=== PATIENT | male | born 1955 | race Caucasian/White ===

== ENCOUNTER → 2018-11-18 | Outpatient (CLI) | payer OTHER ==
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
== END | disposition home or self-care (01) ==
LOC: RAD 08:58
PROVIDERS: ATTEND Physician Assistant Medical
DX: M47.892 Other spondylosis, cervical region (principal); M46.06 Spinal enthesopathy, lumbar region; M47.896 Other spondylosis, lumbar region; M47.893 Other spondylosis, cervicothoracic region
CPT/HCPCS: 72040; 72110

== ENCOUNTER → 2019-01-08 | Outpatient (CLI) | payer OTHER ==
--- NOTE | 2019-01-08 10:59 | RAD ---
Bone mineral density exam History: Closed compression fracture of the lumbar spine, smoker, previously took Fosamax, steroid use Comparison: None Findings: Bone mineral density examination utilizing DEXA was performed. Proximal right femur bone mineral density of 574 mg/cm2 corresponds with a T score -3.4, Z score -2.7. The bone mineral density of the lumbar spine was 0.876 g/cm2 which corresponds with a T-score of -2.9, Z score -2.2. By World [employer] on Osteoporosis criteria, a T score of 0 to-1 SD is considered to be within normal limits. A T score of -1 to -2.5 SD is considered osteopenia. A T score less than -2.5 SD is considered osteoporosis Impression: 1. There is osteoporosis of the lumbar spine and proximal right femur. Electronically signed by: Nabor Monterroso MD (01/08/2019 10:57 AM) [id number]
== END | disposition home or self-care (01) ==
LOC: DXRAD 09:53
PROVIDERS: ATTEND Physician Assistant Medical
DX: M81.8 Other osteoporosis without current pathological fracture (principal); F17.200 Nicotine dependence, unspecified, uncomplicated
CPT/HCPCS: 77080

== ENCOUNTER → 2021-07-30 | Outpatient (CLI) | payer MEDICARE, OTHER ==
--- NOTE | 2021-07-30 15:33 | RAD ---
CT scan of the paranasal sinuses without contrast 07/30/2021 CLINICAL HISTORY: Maxillary hyperplasia. TECHNIQUE: Unenhanced, contiguous, 0.625 mm axial sections were obtained through the paranasal sinuse s. 1 mm reconstructed sagittal, axial and coronal images were obtained. One or more of the following individualized dose reduction techniques were utilized for this study: 1. Automated exposure control. 2. Adjustment of the mA and/or kV according to patient size. 3. Use of iterative reconstruction technique. FINDINGS: Complete opacification of the right maxillary sinus due to mucosal thickening and/or secret ions is seen. Sclerotic thickening of the maxilla surrounding the right maxillary sinus is seen. Irre gular of the of the borders of the inner melissa of the right maxillary sinus seen. These findings are consistent with chronic sinusitis. Mild to moderate mucosal thickening is seen involving the inferior aspect of the left maxillary sinus. The remaining paranasal sinuses are clear. The left ostiomeatal unit is patent. The right ostiomeatal unit is occluded by mucosal thickening. The middle ear cavities and mastoid air cells are well aerated and are clear. IMPRESSION: Findings consistent with chronic sinusitis involving the right maxillary sinus as discuss ed above. Mild to moderate mucosal thickening is seen involving the left maxillary sinus. Electronically signed by: Zohaib Belle MD (07/30/2021 3:30 PM) [id number]
== END ==
LOC: CT 10:03
PROVIDERS: ATTEND Physician Assistant Medical
DX: J34.89 Other specified disorders of nose and nasal sinuses (principal); M26.01 Maxillary hyperplasia
CPT/HCPCS: 70486